=== PATIENT | female | born 1985 | race Caucasian/White ===

== ENCOUNTER → 2019-07-12 08:12 | Outpatient (BNVA) | payer OTHER, SELFPAY | PROVIDERS: Family Provider Family Medicine; PCP Family Medicine; Referring Provider Obstetrics & Gynecology; Visit Provider Obstetrics & Gynecology | DX: R10.2 Pelvic and perineal pain (principal); N83.02 Follicular cyst of left ovary; N83.01 Follicular cyst of right ovary | CPT/HCPCS: 76830 ==

== ENCOUNTER 2019-11-16 11:38 | Outpatient (CLI) | payer OTHER, SELFPAY ==
[2019-11-17 16:24] LABS: Bermuda Class 0/1; Bermuda Grass (G2) Ige 0.12 kU/L; Cat Dander (E1) Ige 0.13 kU/L; Cat Dander Class 0/1; Common Ragweed (Short) (W1) Ig 0.25 kU/L; Dog Dander (E5) Ige <0.10 kU/L; Dog Dander Class 0; Elm (T8) Ige 0.26 kU/L; Elm Class 0/1; English Plantain (W9) Ige <0.10 kU/L; English Plantain Class 0; Immunoglobulin E 86 kU/L (<OR=114); Immunoglobulin E 91 kU/L (<OR=114); Johnson Grass (G10) Ige 0.57 kU/L; Johnson Grass Cl 1; June Grass Class 2; June Grass(Kentucky Blue) (G8) 1.54 kU/L; Lamb'S Quarters (Goose Foot) <0.10 kU/L; Lamb'S Quarters Class 0; Maple (Box Elder) (T1) Ige <0.10 kU/L; Maple Class 0; Meadow Fescue (G4) Ige 1.44 kU/L; Meadow Fescue Class 2; Oak Class 3; Orchard Grass (Cocksfoot) (G3) 1.37 kU/L; Perennial Rye Grass (G5) Ige 1.19 kU/L; Perennial Rye Grass Class 2; Ragweeed Class 0/1; Rough Marsh Elder (W16) Ige <0.10 kU/L; Rough Marsh Elder Class 0; Sweet Vernal Class 2; Sweet Vernal Grass (G1) Ige 1.35 kU/L; Timothy Grass (G6) Ige 1.27 kU/L; Timothy Grass Class 2
[2019-11-18 16:44] LABS: Alternaria Alternata (M6) Ige 1.66 kU/L; Alternaria Class 2; D. Farinae Class 2; Dermatophagoides Class 2; Dermatophagoides Farinae (D2) 2.72 kU/L; Dermatophagoides Pteronyssinus 3.22 kU/L; House Dust (Greer) (H1) Ige 0.56 kU/L; House Dust (Hollister- Stier) 0.54 kU/L; House Dust Class 1; Mucor Racemosus Class 0; Penicillium Class 0; Penicillium Notatum (M1) Ige <0.10 kU/L
[2019-11-21 16:50] LABS: Aspergillus Fumigatus, Igg Ab, 14.7 mg/L (<=102)
== END 2019-11-16 11:39 | disposition home or self-care (01) ==
LOC: LAB 11:43
PROVIDERS: PCP Family Medicine; Visit Provider Internal Medicine Critical Care Medicine
DX: J45.909 Unspecified asthma, uncomplicated (principal)
CPT/HCPCS: 36415; 82785; 86003

== ENCOUNTER → 2019-12-16 08:40 | Outpatient (BNVA) | payer OTHER, SELFPAY | PROVIDERS: PCP Family Medicine; Visit Provider Internal Medicine | DX: Z11.59 Encounter for screening for other viral diseases (principal) | CPT/HCPCS: 87635 ==

== ENCOUNTER 2019-12-20 07:15 | Outpatient (CLI) | payer OTHER, SELFPAY ==
--- NOTE | 2019-12-20 13:53 | PFTS_ITS ---
Date of Study:12/20/19 Date of Dictation: MECHANICS: Forced vital capacity (FVC) is normal Forced expiratory volume in one second (FEV1) is normal FEV1/FVC is normal FLOW VOLUME LOOP: Normal . LUNG VOLUMES: Total lung capacity (TLC) is . Residual volume (RV) is slightly high suggesting mild air trapping DIFFUSING CAPACITY FOR CARBON MONOXIDE: Normal . INTERPRETATION: Normal spirometry with mild air trapping and normal gas transfer. No postbronchodilator studies to determine bronchodilator response. Please correlate clinically. MTDD
== END 2019-12-20 23:00 | disposition home or self-care (01) ==
LOC: RT 01-09 14:52
PROVIDERS: PCP Family Medicine; Visit Provider Internal Medicine Critical Care Medicine
DX: R06.02 Shortness of breath (principal)
CPT/HCPCS: 94010; 94726; 94729

== ENCOUNTER 2021-02-26 00:48 | Day surgery (SDC) | payer BC, SELFPAY ==
[2021-02-26] VITALS (7 sets, daily range): BP systolic 95–125; BP diastolic 58–86; PULSE 69–88; RESP 16–25; TEMP 36.2–36.8; O2SAT 91–99; BMI 29.9
--- NOTE | 2021-02-26 01:42 | XRR_ITS ---
PROCEDURE INFORMATION: Exam: XR Chest Exam date and time: 02/26/2021 1:42 AM Age: 35 years old Clinical indication: Other: Esophageal impaction TECHNIQUE: Imaging protocol: XR of the chest. Views: 1 view. COMPARISON: [facility] [place] Ribs LEFT 05/16/2016 12:12 PM FINDINGS: Lungs: Hyperinflation of the lungs. No consolidation. Pleural spaces: No pneumothorax or apparent pleural fluid. Heart/Mediastinum: Still no cardiomegaly. Bones/joints: No suggestion of acute bony disease. XR/XR chest 1V portable [id number] IMPRESSION: Hyperinflation of the lungs suggesting air trapping, age unknown. No acute findings elsewhere. Radiation Dose CTDIVOL = (mGy): DLP = (mGy-cm)
--- NOTE | 2021-02-26 06:56 | W.ED.GENADLT ---
HPI - General Adult General: Chief complaint: Airway/Esophagus Foreign Body Stated complaint: Food Caught Esophagus Time Seen by Provider: 02/26/21 06:28 History of Present Illness: HPI narrative: 35-year-old female presents emergency room complaint difficulty swallowing. She is not able to's swallow saliva and has been spitting up all night began last night around 7:00 when she was eating chicken. Patient denies any fever sweats chills or any other recent illness. She has nauseous but has not vomited. She is not previously had episodes like this she has a history of asthma is not on any proton pump inhibitors. She states in the last year she has had occasional difficulty swallowing but never had any impaction issues. Onset (ago): hour(s) (12) Location: abdomen Severity: moderate Quality: aching Pain Consistency: constant Exacerbating factors: eating Associated symptoms: Reports decreased appetite; Deny chest pain, confusion, cough, diaphoresis, dyspnea, fevers/chills, headache(s), malaise, nausea, rash, palpitations, seizures, short of breath, syncope, vomiting or weakness Treatments prior to arrival: none Review of Systems Const: Denies: malaise or diaphoresis ENMT: Denies: throat pain, ear or mastoid pain, nasal discharge or nasal congestion Card: Denies: chest pain, palpitations or syncope Resp: Denies: dyspnea GI: Denies: nausea or vomiting : Denies: flank pain, difficulty voiding, dysuria, urinary frequency or urinary urgency Skin/Breast: Denies: rash Neuro: Denies: headache(s) or confusion [facility] ED PFSH: Medical History (Updated 02/28/21 @ 11:22 by Win Piper DO) Asthma History of PCOS Migraines Patient denies medical problems Denies history of: Lung, liver, kidney disorders, hypertension, high cholesterol, bleeding or clotting disorders Surgical History History of hemorrhoidectomy (~07/2017) History of hysterectomy (~05/05/18) with bilateral salpingectomy per Dr. Celaya at [facility] Family History Grandfather Hyperlipidemia maternal Grandmother Heart disease maternal Family/Other Breast cancer maternal aunt and maternal great aunt Patient denies medical problems Denies family history of: Hypertension, Diabetes, Thyroid Problems, Ovarian Cancer, Uterine Cancer, Colon Cancer Other Hypertension Social History Smoking and tobacco status: former smoker Quit status (tobacco): has quit using tobacco Year quit tobacco: 2016 - 1PPD x 14 Years Alcohol intake: current Alcohol intake frequency: holidays/special occasions only Alcohol type: hard liquor Lives independently: Yes Household members: children Marital status: Current occupational status: employed Current occupation: [employer] History of recent travel: No Current gender identity: Female Female Reproductive History: Para: 1 Spontaneous abortions: No Physical Exam Const: COMMON NORMALS: no acute distress GENERAL APPEARANCE: cooperative and comfortable ORIENTATION/CONSCIOUSNESS: Yes awake, Yes oriented to person, Yes oriented to place and Yes oriented to time HENMT: COMMON NORMALS: normocephalic, atraumatic and hearing grossly normal bilaterally HEAD & SCALP: normocephalic and atraumatic Neck/C-Spine: COMMON NORMALS: no JVD Resp: COMMON NORMALS: normal respiratory effort, No retractions, No use of accessory muscles and clear to auscultation bilaterally AUSCULTATION: clear to auscultation bilaterally Cardio: COMMON NORMALS: no JVD, regular rate, regular rhythm and No murmurs present (Cardio) RATE: regular rate RHYTHM: regular rhythm GI: COMMON NORMALS: Soft to palpation and No hepatosplenomegaly present AUSCULTATION: Yes normoactive bowel sounds PALPATION: Yes Soft to palpation, No Tenderness to palpation present (GI), No Guarding due to palpation present (GI) and Yes No hepatosplenomegaly present Extremity: COMMON NORMALS: normal to inspection, capillary refill normal, no clubbing, cyanosis or edema, no calf tenderness and no pedal edema Neuro: SENSORIUM/ORIENTATION: Yes oriented to person, Yes oriented to place and Yes oriented to time Skin: COMMON NORMALS: no rashes or lesions noted GENERAL SKIN EXAM: no rashes or lesions noted Course Vital Signs: Vital signs: Vital Signs Temperature 97.1 F L 02/26/21 09:00 Pulse Rate 69 02/26/21 09:00 Respiratory Rate 18 02/26/21 09:00 Blood Pressure 95/58 02/26/21 09:00 Pulse Oximetry 91 02/26/21 09:00 MDM - General Adult MDM Narrative: Medical decision making narrative: Esophageal food impaction unable to manage saliva. Discussed with Dr. Tatum will take to the GI lab for definitive care. Patient dismissed from the ER. to GI Lab Dr. Tatum will dismiss from there. Lab Data: Labs: Lab Results 02/26/21 02/26/21 07:19 07:19 WBC 6.5 10^3/uL 10^3/ uL (4.0-10.0) RBC 4.60 10^6/uL 10^6 /uL (4.1-5.3) Hgb 14.9 g/dL g/dL (11.5-15.3) Hct 43.3 % % (37.0-47.0) MCV 94.1 fl fl (81-99) MCH 32.4 pg pg (28.0-34.0) MCHC 34.4 g/dL g/dL (30.0-36.0) RDW 12.1 % % (12.1-15.1) Plt Count 314 10^3/cmm 10^3 /cmm (130-400) MPV 9.1 fL fL (7.4-10.4) Neut % (Auto) 61.9 % % Lymph % (Auto) 20.8 % % [place] % (Auto) 7.0 % % Eos % (Auto) 9.2 % % Baso % (Auto) 0.9 % % Neut # (Auto) 4.05 10^3/uL 10^3 /uL (1.8-7.7) Lymph # (Auto) 1.4 10^3/uL 10^3/ uL (0.8-4.8) [place] # (Auto) 0.5 10^3/uL 10^3/ uL (0.2-0.9) Eos # (Auto) 0.6 10^3/uL 10^3/ uL (0.0-0.8) Baso # (Auto) 0.1 10^3/uL 10^3/ uL (0.0-0.1) Nucleated RBC % (a uto) 0 % % Nucleated RBCs # 0.0 /100WBC /100W BC Sodium 139 mmol/L mmol/L (136-145) Potassium 3.7 mmol/L mmol/L (3.5-5.1) Chloride 99 mmol/L mmol/L (98-107) Carbon Dioxide 24 mmol/L mmol/L (22-29) Anion Gap 19.7 H (5-19) BUN 18 mg/dL mg/dL (6-20) Creatinine 0.7 mg/dL mg/dL (0.5-0.9) GFR Calculation 95.8 mL/min mL/mi n (90-130) Glucose 97 mg/dL mg/dL (65-115) Calculated Osmolal ity 290 mOsm/kg mOsm/ kg (285-295) Calcium 9.3 mg/dL mg/dL (8.5-10.5) Total Bilirubin 0.4 mg/dL mg/dL (0.15-1.2) AST 20 U/L U/L (0-32) ALT 22 U/L U/L (0-33) Alkaline Phosphata se 80 IU/L IU/L (35-105) Total Protein 8.0 g/dL g/dL (6.6-8.7) Albumin 5.2 g/dL g/dL (3.5-5.2) Globulin 2.8 g/dL g/dL (1.3-4.6) Discharge Plan Discharge Patient Disposition: Placed in Observation Clinical Impression: Food impaction of esophagus Coding Level of Care Code ED Knock Out Hand for Jose Roberto Arreguin
[2021-02-26] MEDS: ondansetron 2 mg/ML SDV 2 mL 4 MG IVP (07:31)
[2021-02-26] MEDS: sodium chloride 0.9% 1,000 ML 999 ML IV (07:32)
[2021-02-26 07:41] LABS: Basophils # 0.1 10^3/uL (0.0-0.1); Basophils % 0.9 %; Eosinophils # 0.6 10^3/uL (0.0-0.8); Eosinophils % 9.2 %; Hematocrit 43.3 % (37.0-47.0); Hemoglobin 14.9 g/dL (11.5-15.3); Lymphocytes # 1.4 10^3/uL (0.8-4.8); Lymphocytes % 20.8 %; Mean Corpuscular HGB Conc 34.4 g/dL (30.0-36.0); Mean Corpuscular Hemoglobin 32.4 pg (28.0-34.0); Mean Corpuscular Volume 94.1 fl (81-99); Mean Platelet Volume 9.1 fL (7.4-10.4); Monocytes # 0.5 10^3/uL (0.2-0.9); Neutrophils # 4.05 10^3/uL (1.8-7.7); Neutrophils % 61.9 %; Nucleated Red Blood Cells % 0 %; Platelet Count 314 10^3/cmm (130-400); Red Cell Distribution Width 12.1 % (12.1-15.1); White Blood Count 6.5 10^3/uL (4.0-10.0)
--- NOTE | 2021-02-26 07:55 | P.ANESASSM_ITS ---
Pre-Anesthetic Assessment Pre-Anesthetic Assessment: Height/Weight: Height 1.65 m Weight 81.647 kg Temp Pulse Resp BP Pulse Ox 98.3 F 75 17 114/74 99 02/26/21 07:21 02/26/21 07:21 02/26/21 07:21 02/26/21 07:21 02/26/21 07:21 Proposed Procedure: Operation Date: 02/26/21 07:45 Proposed Procedures p Foreign Body Removal(Not Applicable) - Esequiel Tatum MD Was Beta Cathleen taken within 24 hours: N/A Was Clonidine taken within 24 hours: N/A Last intake: Intake Last Liquid Date 02/25/21 Last Liquid Time 19:00 Last Solid Date 02/25/21 Last Solid Time 19:00 Social: Social History: No alcohol and No tobacco Exam: Pre-Anes Outpt Exam: alert, oriented x 3, clear to auscultation bilaterally and regular rate & rhythm Airway: Submandibular: WNL Cervical ROM: WNL MP: 2 Dentition: Full Pulmonary: Pulmonary: Asthma Neuropsych: Neuropsych: Depression and ROBERTS Anesthetic Plan: ASA status: 2E Anesthesia: General (RSI) Risk of > 500 ml blood loss (7ml/kg in children): No Meds/Allergies Current Medications: Current Medications Generic Name Dose Route Start Last Admin Trade Name Freq PRN Reason Stop Dose Admin Sodium Chloride 1,000 mls @ 999 m ls/hr 02/26/21 06:59 02/26/21 07:32 Sodium Chloride 0.9% IV 02/26/21 07:59 999 mls/hr .Q1H1M ONE Administration PFSH Anesthesia PFSH: Medical History Asthma History of PCOS Migraines Patient denies medical problems Denies history of: Lung, liver, kidney disorders, hypertension, high cholesterol, bleeding or clotting disorders Surgical History History of hemorrhoidectomy (~07/2017) History of hysterectomy (~05/05/18) with bilateral sal[facility] Cel[facility] at [facility] Family History Grandfather Hyperlipidemia maternal Grandmother Heart disease maternal Family/Other Breast cancer maternal aunt and maternal great aunt Patient denies medical problems Denies family history of: Hypertension, Diabetes, Thyroid Problems, Ovarian Cancer, Uterine Cancer, Colon Cancer Other Hypertension Social History Smoking and tobacco status: former smoker Quit status (tobacco): has quit using tobacco Year quit tobacco: 2016 - 1PPD x 14 Years Alcohol intake: current Alcohol intake frequency: holidays/special occasions only Alcohol type: hard liquor Lives independently: Yes Household members: children Marital status: Current occupational status: employed Current occupation: [employer] History of recent travel: No Current gender identity: Female Female Reproductive History: Para: 1 Spontaneous abortions: No Data Anesthesia CBC & Chem 7: 02/26/21 07:19 02/26/21 07:19 Other Labs: Laboratory Results - last 48 hr 02/26/21 07:19 WBC 6.5 RBC 4.60 Hgb 14.9 Hct 43.3 MCV 94.1 MCH 32.4 MCHC 34.4 RDW 12.1 Plt Count 314 MPV 9.1 Neut % (Auto) 61.9 Lymph % (Auto) 20.8 [place] % (Auto) 7.0 Eos % (Auto) 9.2 Baso % (Auto) 0.9 Neut # (Auto) 4.05 Lymph # (Auto) 1.4 [place] # (Auto) 0.5 Eos # (Auto) 0.6 Baso # (Auto) 0.1 Nucleated RBC % (auto) 0 Nucleated RBCs # 0.0 Cardiac Studies: No Data to Display
[2021-02-26 08:07] LABS: Alanine Aminotransferase 22 U/L (0-33); Albumin Level 5.2 g/dL (3.5-5.2); Alkaline Phosphatase 80 IU/L (35-105); Anion Gap 19.7 (5-19); Aspartate Amino Transferase 20 U/L (0-32); Blood Urea Nitrogen 18 mg/dL (6-20); Calcium 9.3 mg/dL (8.5-10.5); Carbon Dioxide 24 mmol/L (22-29); Chloride 99 mmol/L (98-107); Globulin 2.8 g/dL (1.3-4.6); Glomerular Filtration Rate 95.8 mL/min (90-130); Glucose 97 mg/dL (65-115); Osmolality Calculated 290 mOsm/kg (285-295); Potassium 3.7 mmol/L (3.5-5.1); Sodium 139 mmol/L (136-145); Total Bilirubin 0.4 mg/dL (0.15-1.2)
--- NOTE | 2021-02-26 09:08 | PC.NURSE ---
Protonix sent to [facility] canceled and prescription called to [facility] [place] via telephone by nurse.
== END 2021-02-26 09:15 | disposition home or self-care (01) ==
LOC: ER 06:28 → GILAB 07:14
PROVIDERS: Emergency Provider Family Medicine; Visit Provider Internal Medicine
DX: T18.128A Food in esophagus causing other injury, initial encounter (principal); J45.909 Unspecified asthma, uncomplicated; E28.2 Polycystic ovarian syndrome; Z87.891 Personal history of nicotine dependence; Z82.49 Family history of ischemic heart disease and other diseases of the circulatory system
CPT/HCPCS: 43247; 71045; 80053; 85025; 96361; 96374; J0330; J2405; J2704; J7030

== ENCOUNTER → 2021-03-12 11:00 | Outpatient (BNVA) | payer BC, SELFPAY | PROVIDERS: PCP Family Medicine; Visit Provider Internal Medicine | DX: Z01.812 Encounter for preprocedural laboratory examination (principal); Z20.822 Contact with and (suspected) exposure to COVID-19; R13.19 Other dysphagia | CPT/HCPCS: 87635 ==

== ENCOUNTER 2021-03-18 07:18 | Day surgery (SDC) | payer BC, SELFPAY ==
[2021-03-13 15:20] VITALS: BMI 29.0
--- NOTE | 2021-03-18 07:32 | ANES.PREANE2 ---
Pre-Anesthetic Assessment Pre-Anesthetic Assessment: Height/Weight: Height 1.7 m Weight 83.915 kg Preop Diagnosis: dysphagia Proposed Procedure: Operation Date: 03/18/21 08:45 Proposed Procedures p EGD Dilation W/ Bougie 33999 R13.19(Not Applicable) - Esequiel Tatum MD Familial anesthetic complications: None Last intake: > 8hrs Social: Social History: No alcohol and No tobacco Exam: Pre-Anes Outpt Exam: alert, oriented x 3, clear to auscultation bilaterally and regular rate & rhythm Airway: MP: 2 Dentition: Other (1 missing) Additional comments: invisalign Pulmonary: Pulmonary: Asthma GI: GI: GERD Metabolic: Comments: PCOS Anesthetic Plan: ASA status: 2 Anesthesia: MAC Risk of > 500 ml blood loss (7ml/kg in children): No PFSH Anesthesia PFSH: Medical History (Updated 03/12/21 @ 10:31 by Esequiel Tatum MD) Asthma Food impaction of esophagus History of PCOS Migraines Patient denies medical problems Denies history of: Lung, liver, kidney disorders, hypertension, high cholesterol, bleeding or clotting disorders Surgical History History of hemorrhoidectomy (~07/2017) History of hysterectomy (~05/05/18) with bilateral salpingectomy per Dr. Celaya at [facility] Family History Grandfather Hyperlipidemia maternal Grandmother Heart disease maternal Family/Other Breast cancer maternal aunt and maternal great aunt Patient denies medical problems Denies family history of: Hypertension, Diabetes, Thyroid Problems, Ovarian Cancer, Uterine Cancer, Colon Cancer Other Hypertension Social History Smoking and tobacco status: former smoker Quit status (tobacco): has quit using tobacco Year quit tobacco: 2016 - 1PPD x 14 Years Alcohol intake: current Alcohol intake frequency: holidays/special occasions only Alcohol type: hard liquor Lives independently: Yes Household members: children Marital status: Current occupational status: employed Current occupation: [employer] History of recent travel: No Current gender identity: Female Female Reproductive History: Para: 1 Spontaneous abortions: No Data Anesthesia Cardiac Studies: No Data to Display
[2021-03-18 08:21] VITALS: BP 109/67; PULSE 67; RESP 18; TEMP 36.5; O2SAT 97
[2021-03-18] MEDS: sodium chloride 0.9% 1,000 ML 30 ML IV (08:33)
[2021-03-18 09:02] VITALS: BP 98/59; PULSE 54; RESP 16; TEMP 36.3; O2SAT 96
[2021-03-18 09:12] VITALS: BP 99/65; PULSE 54; RESP 18; O2SAT 96
[2021-03-18 09:18] VITALS: BP 103/65; PULSE 50; RESP 18; TEMP 36.4; O2SAT 97
--- NOTE | 2021-03-18 14:26 | ANE.PACU2 ---
Inpatient post-anesthesia follow up: Airway intact: Yes Vital signs: Temperature 97.6 F Pulse Rate 50 Respiratory Rate 18 Blood Pressure 103/65 Pulse Oximetry 97 Oxygen Delivery Me thod Room Air Oxygen Flow Rate 2 Fraction of Inspir ed Oxygen Hydration adequate: Yes Nausea and vomiting: No Pain level: 2 Mental status: Baseline
--- NOTE | 2021-04-03 12:40 | W.PM.OPSFHP ---
Same Day Surgery H&P Indication for Procedure/HPI DATE OF PROCEDURE: April 03, 2021 CHIEF COMPLAINT/INDICATIONFOR SURGICAL PROCEDURE: History of esophageal food impaction PREOP DIAGNOSIS: Dysphagia PLANNED PROCEDRUE: Operation Date: 03/18/21 08:45 Proposed Procedures p EGD Dilation W/ Bougie 18136 R13.19(Not Applicable) - Esequiel Tatum MD Medications/Allergies* Home Medications Medication Instructions Recorded Confirmed Type prenat.vits,guadalupe,ngm-ioxi-heuhh 1 tab PO QDAY 05/11/19 03/18/21 History sumatriptan succinate 50 mg tablet 50 mg PO Q2H PRN tab 05/11/19 03/18/21 History acyclovir 1 tab PO DAILY 06/21/19 03/18/21 History acidophilus 100 million 1 cap PO DAILY cap 07/27/19 03/18/21 History cell-pectin, citrus 10 mg capsule cranberry 1 tab PO DAILY 07/27/19 03/18/21 History magnesium oxide 500 mg capsule 500 mg PO DAILY 07/27/19 03/18/21 History fluoxetine 10 mg capsule 30 mg PO DAILY cap 04/17/20 03/18/21 History Allergies/Adverse Reactions Allergy/AdvReac Type Severity Reaction Status Date / Time Penicillins AdvReac Ear Verified 03/13/21 15:16 swelling/bleeding lotions Allergy rash and Uncoded 03/13/21 15:16 swelling Pertinent History/Comorbid Conditions* Medical History (Updated 03/12/21 @ 10:31 by Esequiel Tatum MD) Asthma Food impaction of esophagus History of PCOS Migraines Patient denies medical problems Denies history of: Lung, liver, kidney disorders, hypertension, high cholesterol, bleeding or clotting disorders Surgical History (Updated 05/11/19 @ 10:53 by Carolina Xiao RN) History of hemorrhoidectomy (~07/2017) History of hysterectomy (~05/05/18) with bilateral salpingectomy per Dr. Celaya at [facility] Family History (Updated 05/11/19 @ 10:55 by Carolina Xiao, DEJAH) Heart disease Grandmother maternal Hyperlipidemia Grandfather maternal Patient denies medical problems Family/Other Denies family history of: Hypertension, Diabetes, Thyroid Problems, Ovarian Cancer, Uterine Cancer, Colon Cancer Breast cancer Family/Other maternal aunt and maternal great aunt Hypertension Social History Smoking and tobacco status: former smoker Quit status (tobacco): has quit using tobacco Year quit tobacco: 2016 - 1PPD x 14 Years Alcohol intake: current Alcohol intake frequency: holidays/special occasions only Alcohol type: hard liquor Lives independently: Yes Household members: children Marital status: Current occupational status: employed Current occupation: [employer] History of recent travel: No Current gender identity: Female Pertinent Exam Findings alert, oriented x 3, clear to auscultation bilaterally, regular rate & rhythm, operative site marked and procedure specific exam findings Recommendations Surgery/Procedure today Coding Level of Care Code Acute [facility] Manager for Jose Roberto Arreguin
== END 2021-03-18 09:40 | disposition home or self-care (01) ==
PROVIDERS: PCP Family Medicine; Visit Provider Internal Medicine
DX: R13.19 Other dysphagia (principal); Z88.0 Allergy status to penicillin; J45.909 Unspecified asthma, uncomplicated; E28.2 Polycystic ovarian syndrome; Z82.49 Family history of ischemic heart disease and other diseases of the circulatory system; Z80.3 Family history of malignant neoplasm of breast; Z87.891 Personal history of nicotine dependence; K21.9 Gastro-esophageal reflux disease without esophagitis
CPT/HCPCS: 43235; 96360; J2704; J7030